=== PATIENT | female | born 2000 | race Caucasian/White ===

== ENCOUNTER 2024-09-10 00:25 | Emergency (ER) | payer OTHER ==
[~2024-09-10] VITALS: Ht 162.6 cm; Wt 55.0 kg
[2024-09-10 00:35] VITALS: O2SAT 100
[2024-09-10 01:36] LABS: BASOPHILS % 0.3 % (0.0-2.0); EOSINOPHILS % 0.4 % (0.0-5.0); HEMATOCRIT. 34.7 % (36.0-48.0); HEMOGLOBIN. 11.8 g/dL (12.0-16.0); LYMPHOCYTES % 16.8 % (20.0-50.0); MEAN CORPUSCULAR HEMOGLOBIN 30.3 pg (28.0-32.0); MEAN CORPUSCULAR HGB CONC 34.1 g/dL (31.0-37.0); MEAN PLATELET VOLUME 7.9 fl (7.4-10.4); NEUTROPHILS % 78.5 % (40.0-76.0); PLATELET 260 x1000/uL (130-400); RED CELL DISTRIBUTION WIDTH 13.8 % (11.6-14.6); WHITE BLOOD COUNT 10.2 x1000/uL (4.5-11.0)
[2024-09-10 01:47] LABS: CHLORIDE 107 mEq/L (98-107); POTASSIUM 3.7 mEq/L (3.5-5.1); SODIUM 142 mEq/L (136-145)
[2024-09-10 01:48] LABS: CARBON DIOXIDE 27 mEq/L (21-32)
[2024-09-10 01:49] LABS: CALCIUM 8.3 mg/dL (8.7-10.4)
[2024-09-10 01:53] LABS: CREATININE 0.7 mg/dL (0.6-1.0); GLUCOSE 93 mg/dL (70-105); UREA NITROGEN BLOOD 11 mg/dL (9-23)
[2024-09-10 01:54] LABS: ETHANOL BLOOD 251 mg/dL (<10)
[2024-09-10] MEDS ORDERED: ONDA4TAB50 MT (02:14)
[2024-09-10 02:58] VITALS: BP 111/78; PULSE 95; RESP 16; TEMP 36.6; O2SAT 100
[2024-09-10 03:48] LABS: HCG SCREEN NEGATIVE
== END 2024-09-10 03:06 | disposition home or self-care (01) ==
LOC: EDBD 00:56 → ER 00:56
DX: T51.0X1A Toxic effect of ethanol, accidental (unintentional), initial encounter (principal); F10.129 Alcohol abuse with intoxication, unspecified; F32.A Depression, unspecified; Y92.89 Other specified places as the place of occurrence of the external cause; Y90.9 Presence of alcohol in blood, level not specified
CPT/HCPCS: 36415; 80048; 80320; 84703; 85025; 99284; G0480